=== PATIENT | female | born 1985 | race Caucasian/White ===

== ENCOUNTER 2018-02-19 09:58 | Emergency (ER) | payer MEDICAID, SELFPAY ==
[2018-02-19 09:59] VITALS: BP 130/72; PULSE 73; RESP 15; TEMP 36.7; O2SAT 98; BMI 30.5
--- NOTE | 2018-02-19 10:30 | ED.VISSUMM ---
- ER Visit Summary Date of Service: 02/19/18 Chief Complaint: Abscess, migraine History of Present Illness: The patient is a 32 F who reports a painful lump behind her right ear that she noted last night. She tried to drain it by squeezing it but states this triggered a migraine. She now has a migraine behind her right eye. She took Imitrex last night without improvement. She did take ibuprofen already this morning. Patient states she had a similar abscess to this area that got quite large and required I&D. She denies fever or chills. Physical Examination: Vital signs unremarkable. Head neck examination was a 1/2 cm round abscess just posterior to the right ear. There is mild fluctuance. There is no surrounding cellulitis. There is no meningismus. Heart is regular rate and rhythm. Lung sounds are clear. Abdomen is soft nontender. Neuro exam is normal. Test Results: [] Emergency Department Course and Treatment: Let was applied to the abscess. After 20 minutes 18-gauge needle was used to aspirate. I did get small amount of white pus. Wound was cleansed and dressed. Patient did drive herself here and therefore did not wish for migraine medication at this time, but we will write her for Toradol, Reglan, and Benadryl that she will take after she gets home. At this time there is no sign of cellulitis and antibiotics are not indicated. Patient will use warm compresses to the abscess area to encourage continued drainage. Treatment Plan: [] Disposition: Discharge Impression: 1. Cutaneous abscess status post needle aspiration 2. Migraine This note was generated with [employer] dictation software. It may contain incorrect words, spelling, and punctuation that were not noted in review of the chart prior to signing ED Disposition - Plan for ED Patient: Chief Complaint: Abscess Referrals: Magen Crow MD [NON-STAFF] -
--- NOTE | 2018-02-19 11:12 | ED.DEP ---
ED Disposition - Plan for ED Patient: Disposition: Home or Assisted Living Chief Complaint: Abscess Instructions: ED Headache Migraine, ED Abscess IandD Prescriptions: DiphenhydrAMINE [Benadryl] 50 mg PO Q6H PRN PRN #10 cap PRN Reason: Migraine Symptoms Ketorolac [Toradol] 10 mg PO Q6H PRN #10 tab PRN Reason: Migraine Symptoms Metoclopramide [Reglan] 10 mg PO 4X/DAY PRN #10 tab PRN Reason: Migraine Symptoms Referrals: Yuan Blackburn MD [Primary Care Provider] - 1 Week
[2018-02-19] MEDS: Lidocaine/Epi/Tetracaine 50 ML 1 APPLIC TOPICAL (11:25)
== END 2018-02-19 11:35 | disposition home or self-care (01) ==
PROVIDERS: Emergency Provider Emergency Medicine; Family Provider Family Medicine; PCP Family Medicine
DX: H60.01 Abscess of right external ear (principal); G43.909 Migraine, unspecified, not intractable, without status migrainosus; Z79.899 Other long term (current) drug therapy; Z87.891 Personal history of nicotine dependence
CPT/HCPCS: 69000; 99282

== ENCOUNTER 2018-09-03 15:55 | Emergency (ER) | payer MEDICAID, SELFPAY ==
[2018-09-03 15:55] VITALS: BP 116/75; PULSE 75; RESP 16; TEMP 37.1; O2SAT 96; BMI 29.5
--- NOTE | 2018-09-03 16:38 | ED.DCSUM_ITS ---
- ER Visit Summary Date of Service: 09/03/18 Chief Complaint: Headache History of Present Illness: The patient is a 33 F history of migraine headaches. Takes Imitrex as needed. Says she has been feeling well recently with nasal congestion. Over the last 3 days she has had intermittent frontal and global headache. Gradual in onset. Associated photophobia and sonophobia. Nausea without vomiting. No fever. No purulent nasal discharge. No head trauma. She is on no blood thinners. There is no family history of intracranial bleeds or aneurysms. She had a prior CAT scan in the past which was unremarkable. Physical Examination: Well-appearing female seated in bed darkened room. Vital signs are stable afebrile. No distress. Pupils round reactive light. Extra motions are intact. No nerve palsy. No facial droop. No frontal or maxillary sinus tenderness. Nasal congestion but no purulent discharge. TMs are normal. Posterior pharynx normal. No erythema or exudate. No signs of trauma to her face or scalp. Neck nontender no meningismus. Trachea midline. Able to touch chin to chest. Lungs clear to auscultation bilaterally. Heart regular rate and rhythm no murmur. Abdomen soft nontender. Patient moving all 4 extremities. Neurovascular intact. 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 Dorsi plantar flexion intact. Heel to wall and finger to nose within normal limits. Neurologically she is awake alert with no focal motor or sensory deficits NIH score of 0. Test Results: None Emergency Department Course and Treatment: Patient treated with IV fluids, Toradol, Benadryl and Phenergan. Repeat exam at 1730 patient is doing well. Headache is nearly completely resolved. Her neurologic exam remains normal and she feels comfortable being discharged home. Treatment Plan: Tylenol and Advil as needed for pain. Follow-up with your doctor as needed. Disposition: Discharge Impression: Acute cephalgia History of migraine headaches This note was generated with [employer] dictation software. It may contain incorrect words, spelling, and punctuation that were not noted in review of the chart prior to signing ED Disposition - Plan for ED Patient: Referrals: Yuan Blackburn MD [Primary Care Provider] -
[2018-09-03] MEDS: DiphenhydrAMINE 50 MG/ML Syringe 25 MG IV (16:58)
[2018-09-03] MEDS: 0.9% Normal Saline 1,000 ML 1000 ML IV (16:59)
[2018-09-03] MEDS: Ketorolac 30 MG/ML Syringe IV (16:59)
[2018-09-03] MEDS: proMETHazine 25 MG/ML Syringe 12.5 MG IV (16:59)
--- NOTE | 2018-09-03 17:34 | ED.DEP ---
ED Disposition - Plan for ED Patient: Disposition: Home or Assisted Living Instructions: ED Cephalgia Unspecified Referrals: Yuan Blackburn MD [Primary Care Provider] - 3-5 Days if not improving Additional Instructions: Fluids and rest. Tylenol and Advil for pain. Return if feeling worse or follow-up with your doctor if not improving.
[2018-09-03 17:43] VITALS: RESP 18
== END 2018-09-03 17:45 | disposition home or self-care (01) ==
PROVIDERS: Emergency Provider Emergency Medicine; Family Provider Family Medicine; PCP Family Medicine
DX: R51 Headache (principal); R11.0 Nausea
CPT/HCPCS: 96361; 96374; 96375; 99283; J7030; A4216

== ENCOUNTER 2018-11-21 17:17 | Emergency (ER) | payer MEDICAID, SELFPAY ==
[2018-11-21 17:18] VITALS: BP 134/80; PULSE 86; RESP 16; TEMP 36.1; O2SAT 95; BMI 29.0
[2018-11-21] MEDS: Metoclopramide 10 MG/2 ML Vial IV (17:55)
[2018-11-21] MEDS: Ketorolac 30 MG/ML Syringe IV (17:55)
[2018-11-21] MEDS: DiphenhydrAMINE 50 MG/ML Syringe 25 MG IV (17:55)
[2018-11-21] MEDS: 0.9% Normal Saline 1,000 ML 999 ML IV (17:55)
--- NOTE | 2018-11-21 19:05 | ED.VISSUMM ---
- ER Visit Summary Date of Service: 11/21/18 Chief Complaint: Headache History of Present Illness: The patient is a 33 F who presents with migraine headache. She is a history of migraines. She states this particular headache started last night and has not improved with her home medications. She later admits to me that she is low on her amitriptyline that she normally takes and only took 20 mg last night set of 40. She does have a prescription ready at the pharmacy to picker feeder. Pain was too severe today to go to the pharmacy. She denies any recent head injury. She had some mild sinus congestion. No fever. Physical Examination: Vital signs unremarkable. Patient is lying in a darkened room. She is crying. Head and neck examination was no meningismus. Heart is regular rate and rhythm. Lung sounds are clear. Abdomen is soft nontender. Neuro exam is unremarkable. Test Results: [] Emergency Department Course and Treatment: Patient was treated with Toradol, Reglan, Benadryl, and IV fluids. On repeat evaluation she states her headache is completely resolved. She will picker feeder her amitriptyline at the pharmacy on the way home. Treatment Plan: [] Disposition: Discharge Impression: Migraine, improved This note was generated with [email or web address] dictation software. It may contain incorrect words, spelling, and punctuation that were not noted in review of the chart prior to signing ED Disposition - Plan for ED Patient: Disposition: Home or Assisted Living Instructions: ED Headache Migraine Referrals: Yuan Blackburn MD [Primary Care Provider] - As Needed
[2018-11-21 19:18] VITALS: RESP 18
== END 2018-11-21 19:19 | disposition home or self-care (01) ==
PROVIDERS: Emergency Provider Emergency Medicine; Family Provider Family Medicine; PCP Family Medicine
DX: G43.909 Migraine, unspecified, not intractable, without status migrainosus (principal); R09.81 Nasal congestion; F41.9 Anxiety disorder, unspecified; F32.9 Major depressive disorder, single episode, unspecified; Z79.899 Other long term (current) drug therapy; Z87.891 Personal history of nicotine dependence
CPT/HCPCS: 96361; 96374; 96375; 99283; J7030

== ENCOUNTER 2021-08-16 17:13 | Observation (INO) | payer MEDICAID, SELFPAY ==
[2021-08-16 17:14] VITALS: BP 121/75; PULSE 69; RESP 14; TEMP 36.2; O2SAT 100; BMI 27.8
--- NOTE | 2021-08-16 17:29 | EX.ED.SAOD ---
HPI History of Present Illness Chief Complaint: Substance Abuse Informant: patient Associated Symptoms Associated Symptoms: Positive for vomiting* (With withdrawal) and tremor Narrative Narrative: Patient presenting wanting detox for narcotics. For the last 6 months or so, she has been crushing Percocet tablets and snorting them. She states initially, she only did this because she was dating someone who got her hooked on them. She no longer is dating that person, but now she is unable to stop it because of the withdrawal symptoms. She does not use any other substances except for occasional marijuana. She uses about 4 tablets/day on average. She states they are being advertised to her as Percocet 30s, and she states since they do not make those anymore she suspects they are pressed pills of something else may be fentanyl. She has not had any overdoses or loss of consciousness. [facility] Medical History (Updated 08/16/21 @ 18:47 by Althea Damian) Anxiety Bipolar disorder Migraines Substance abuse Home Medications brexpiprazole [Rexulti] 2 mg PO DAILY 08/16/21 [History Last Taken 08/16/21] lamotrigine 200 mg PO DAILY 08/16/21 [History Last Taken 08/16/21] rizatriptan 10 mg PO PRN PRN 08/16/21 [History Last Taken Unknown] Allergy/AdvReac Type Severity Reaction Status Date / Time amoxicillin [Amoxicillin] Allergy Unknown Verified 08/16/21 17:14 Social History (Updated 08/16/21 @ 17:[address] Jamel Lawton MD) Smoking Status: Current every day smoker tobacco type: e-cigarettes how long ago did patient quit smoking: Patient vapes and occasionally uses marijuana substance use type: opiates ROS ROS ED Constitutional Constitutional ED: Denies chills or fever(s) Eyes Eyes: Denies change in vision or diplopia ENT ENT ED: Denies rhinorrhea or sore throat Cardiovascular Cardiovascular: Denies chest pain or palpitations Respiratory/Chest Respiratory/Chest: Denies cough or dyspnea Gastrointestinal Gastrointestinal: Denies abdominal pain, diarrhea, nausea or vomiting Genitourinary Genitourinary ED: Denies dysuria or hematuria Musculoskeletal Musculoskeletal: Denies back pain or neck pain Integumentary Denies abscess or rash Neurologic Neurologic: Denies headache(s), paresthesias or weakness Psychiatric Psychiatric: Denies anxiety or suicidal thoughts EXAM Physical Exam Const Vital Signs: 08/16/21 17:14 Temperature 97.1 F L Temperature Source Temporal Pulse Rate 69 Respiratory Rate 14 Blood Pressure 121/75 H Blood Pressure Mean 90 Pulse Ox 100 Oxygen Delivery Method Room Air Positive well nourished and well developed General Appearance ED: well developed and NAD HEENT Reports moist mucous membranes normocephalic and atraumatic Eyes PERRL and EOMs intact bilaterally Neck full ROM and supple Resp normal respiratory effort and clear to auscultation bilaterally Cardio regular rate, regular rhythm and no murmurs GI non-tender and non-distended Auscultation: normoactive bowel sounds Palpation: soft Back/Spine no CVA tenderness General Back: other FROM Extremity normal to inspection General Extremety ED: Negative for edema, pulses abnormal or tenderness General Extremity: Negative for edema or pulses abnormal Neuro oriented x3, CN's II-XII intact bilaterally and no sensory deficits noted Sensorium / Orientation: awake and alert Motor Exam: strength 5/5 throughout Skin no rashes or lesions noted and no wounds MDM MDM MDM Narrative Medical decision making narrative: Patient is clinically and hemodynamically stable, not having any acute withdrawal at this time since she used earlier, discussed with hospitalist for admission to detox. Lab Data Attestation: I reviewed the patient's lab results. Labs: Laboratory Results - last 24 hr 08/16/21 08/16/21 08/16/21 18:00 18:05 18:05 WBC 7.6 RBC 4.70 Hgb 14.5 Hct 41.7 MCV 88.7 MCH 30.9 MCHC 34.8 RDW Std Deviation 38.8 RDW Coeff of Leann 12.0 Plt Count 265 MPV 9.6 Immature Gran % (Auto) 0.400 Neut % (Auto) 65.0 Lymph % (Auto) 27.8 [place] % (Auto) 5.9 Eos % (Auto) 0.5 Baso % (Auto) 0.4 Absolute Neuts (auto) 5.0 Absolute Lymphs (auto) 2.12 Nucleated RBC % 0 Sodium Potassium Chloride Carbon Dioxide Anion Gap BUN Creatinine Estim Creat Clear Calc Est GFR (MDRD) Af Amer Est GFR (MDRD) Non-Af BUN/Creatinine Ratio Glucose Calcium Total Bilirubin AST ALT Alkaline Phosphatase Total Protein Albumin Globulin Albumin/Globulin Ratio Serum , Qual NEGATIVE Urine Opiates Screen NEGATIVE Urine Methadone Screen NEGATIVE Ur Barbiturates Screen NEGATIVE Ur Phencyclidine Scrn NEGATIVE Ur Amphetamines Screen NEGATIVE MDMA (Ecstasy) Screen NEGATIVE U Benzodiazepines Scrn NEGATIVE Urine Cocaine Screen NEGATIVE U Cannabinoids Screen POSITIVE H Ur Drug Screen Comment Ethyl Alcohol 08/16/21 08/16/21 18:05 18:05 WBC RBC Hgb Hct MCV MCH MCHC RDW Std Deviation RDW Coeff of Leann Plt Count MPV Immature Gran % (Auto) Neut % (Auto) Lymph % (Auto) [place] % (Auto) Eos % (Auto) Baso % (Auto) Absolute Neuts (auto) Absolute Lymphs (auto) Nucleated RBC % Sodium 136 Potassium 3.4 L Chloride 101 Carbon Dioxide 32.0 Anion Gap 3 L BUN 14 Creatinine 0.64 Estim Creat Clear Calc 114.86 Est GFR (MDRD) Af Amer 136 Est GFR (MDRD) Non-Af 112 BUN/Creatinine Ratio 21.9 H Glucose 79 Calcium 8.8 Total Bilirubin 0.50 AST 11 L ALT 23 Alkaline Phosphatase 44 L Total Protein 7.4 Albumin 4.2 Globulin 3.2 Albumin/Globulin Ratio 1.3 Serum , Qual Urine Opiates Screen Urine Methadone Screen Ur Barbiturates Screen Ur Phencyclidine Scrn Ur Amphetamines Screen MDMA (Ecstasy) Screen U Benzodiazepines Scrn Urine Cocaine Screen U Cannabinoids Screen Ur Drug Screen Comment Ethyl Alcohol < 3.0 Discharge Plan Dx/Rx/DC Orders Clinical Impression: Opioid dependence Disposition Disposition: Acute Care Hospital [facility] Discharge Date/Time: 08/16/21 19:06
--- NOTE | 2021-08-16 18:12 | PCM.HP.STD ---
HPI - General General Date of Admission: 08/16/21 HPI Narrative TISH NORIEGA, is a 36 F with a PMH as outlined who presents via the ED on 08/16/2021 for opiate detox. She says she crushes percocet and snorts them, and has been doing so for at least the past 6 months. She says she only started because she was involved with someone who got her addicted to drugs. She is no longer with that person and so wants to quit. SHe crushes ~ 4 tabs daily and she says she suspects the pills may be something else, eg fentanyl. She admitted to vomiting and tremors, but denied any lightheadedness, dizziness, palpitations, increased sweating or nausea. Review of systems was otherwise negative. Vitals were BP of 121/75, TX of 69, RR of 14 and she was saturating at 100~ on room air. CBC and BMP were pending. Urine tox was also pending. She is being admitted to be managed for acute opiate detox. [facility] Medical History (Updated 08/16/21 @ 18:[address] Swati Rico MD) Anxiety Bipolar disorder Migraines Home Medications brexpiprazole [Rexulti] 2 mg PO DAILY 08/16/21 [History Last Taken Unknown] lamotrigine 200 mg PO DAILY 08/16/21 [History Last Taken Unknown] rizatriptan 10 mg PO PRN PRN 08/16/21 [History Last Taken Unknown] Allergy/AdvReac Type Severity Reaction Status Date / Time amoxicillin [Amoxicillin] Allergy Unknown Verified 08/16/21 17:14 Social History (Updated 08/16/21 @ 17:[address] Jamel Lawton MD) Smoking Status: Current every day smoker tobacco type: e-cigarettes how long ago did patient quit smoking: Patient vapes and occasionally uses marijuana substance use type: opiates ROS Constitutional Constitutional: Denies chills, fatigue, fever(s), malaise or weakness Eyes Eyes: Denies change in vision ENT HEENT: Denies dysphagia, headache(s), nasal discharge or sore throat Cardiovascular Cardiovascular: Denies chest pain, dyspnea on exertion, edema, lightheadedness, orthopnea, palpitations, paroxysmal nocturnal dyspnea, rapid heart rate or syncope Respiratory/Chest Respiratory/Chest: Denies cough, dyspnea, productive cough, shortness of breath at rest or shortness of breath with exertion Gastrointestinal Gastrointestinal: Reports vomiting; Denies abdominal pain, constipation, diarrhea or nausea Genitourinary Genitourinary: Denies burning urination or dysuria Musculoskeletal Musculoskeletal: Denies arthralgias, back pain or joint swelling Neurologic Neurologic: Denies confusion, dizziness, focal weakness, headache(s), numbness, seizure-like activity, seizures, syncope or tingling Psychiatric Psychiatric: Denies anxiety or depression Endocrine Endocrinology: Denies change in body appearance Hematologic/Lymphatic Hematologic/Lymphatic: Denies anemia Vital Signs Vital Signs Vital Signs: 08/16/21 17:14 Temperature 97.1 F L Temperature Source Temporal Pulse Rate 69 Respiratory Rate 14 Blood Pressure 121/75 H Blood Pressure Mean 90 Pulse Ox 100 Oxygen Delivery Method Room Air Weight Weight: 172 lb 6.424 oz Body Mass Index (BMI) 27.8 Physical Exam Const alert, oriented x3 and no apparent distress General Appearance: cooperative HEENT normocephalic, head/scalp atraumatic, hearing grossly normal bilaterally and moist oral mucous membranes Eyes PERRL Neck no lymphadenopathy and supple Resp normal respiratory effort, no retractions, no use of accessory muscles and clear to auscultation bilaterally Cardio regular rate, regular rhythm, S1 normal heart sound, S2 normal heart sound and no murmurs GI normal to inspection, nondistended, normoactive bowel sounds, soft to palpation, non-tender and non-distended Extremity normal to inspection, full ROM and no clubbing, cyanosis or edema Peripheral Pulses: Yes pulses 2+ throughout Skin no rashes or lesions noted Neuro oriented x3, CN's II-XII intact bilaterally and moves all extremities Sensorium / Orientation: awake and alert Psych affect normal Results Lab / Micro Data Result Diagrams: 08/16/21 18:05 08/16/21 18:05 Assessment & Plan Assessment/Plan (1) Opioid withdrawal: PLAN: #Acute opioid withdrawal admit to med surg urine tox pending start on opioid withdrawal protocol with buprenorphine adjunctive meds as per protocol for symptomatic relief #History of migraines: on lamictal and rizatriptan #Bipolar disorder: not on any meds now. To follow up with PCP on outpatient basis DVT prophylaxis;low dose, encouraged to ambulation. Charges/Coding Visit Charges Inpatient E&M: 95126 Init Hosp L3
--- NOTE | 2021-08-16 18:13 | NURSING ---
HOSPITALIST FOR DR HOFFMAN
[2021-08-16 18:15] LABS: Absolute Lymphocyte Count 2.12 X10^3/uL (0.83-4.51); Basophil# 0.03 X10^3/uL; Basophil% 0.4 % (0-1); Eosinophil# 0.04 X10^3/uL; Eosinophils% 0.5 % (0-5); Hematocrit 41.7 % (37-47); Hemoglobin 14.5 g/dL (12.0-15.0); Lymphocyte # 2.12 X10^3/ul (0.83-4.51); Lymphocyte % 27.8 % (19-41); Mean Corp Hgb Conc 34.8 g/dL (32-36); Mean Corpuscular Hgb 30.9 pg (27.0-32.0); Mean Corpuscular Volume 88.7 fL (81-99); Mean Platelet Vol. 9.6 fl (6.2-12.0); Monocyte# 0.45 X10^3/uL; Monocyte% 5.9 % (0-10); NRBC Flagged by Analyzer 0 % (0-5); Neutrophil # 4.96 X10^3/uL (2.7-7.7); Platelet Count 265 K/mm3 (150-450); RBC Distribution Width SD 38.8 fl (35.1-43.9); White Blood Count 7.6 K/mm3 (4.4-11.0)
--- NOTE | 2021-08-16 18:22 | NURSING ---
MED SURG [facility] OPIOD DEPENDENCE
--- NOTE | 2021-08-16 18:24 | CM.ED ---
SONYA Note Referral Source: Case Find Referral Reason: Detox SW met with patient. She reports she is at the hospital for detox. She reports taking 4 percocet 30's a day but they aren't real percocet they are a pressed pill. Patient reports using the pills for 6 months. Last time she took pills was this morning. Patient reports no detox or residental treatment in the past. SW called Zain, Addiction Therapist and updated her regarding patient's presentation in the ED. Plan: RAMP admission Kathryn HAN
[2021-08-16 18:28] LABS: Internal QC Validated? YES +Cl - CLEAR BKGD; Pregnancy, Serum, hCG Quali. NEGATIVE Negative
[2021-08-16 18:31] VITALS: BP 120/72; PULSE 70; RESP 16; TEMP 36.6; O2SAT 100
[2021-08-16 18:32] LABS: Amphetamine Urine VISTA NEGATIVE (<1000 ng/mL); Barbiturate Urine VISTA NEGATIVE (< 200 ng/mL); Benzodiazepine Urine VISTA NEGATIVE (< 200 ng/mL); Cocaine Urine VISTA NEGATIVE (< 300 ng/mL); Ecstacy Urine VISTA NEGATIVE (< 500 ng/mL); Methadone Urine VISTA NEGATIVE (< 300 ng/mL); PCP Urine VISTA NEGATIVE (< 25 ng/mL); THC Urine VISTA POSITIVE (< 50 ng/mL); Vista UDS pH Range 6
[2021-08-16 18:38] LABS: Alcohol, Blood (Medical)-Serum < 3.0 mg/dL
[2021-08-16 18:47] LABS: ALB/GLOB Ratio 1.3 RATIO (0.9-2.4); AST(SGOT) 11 U/L (15-37); Alanine Aminotransfer ALT/SGPT 23 U/L (13-56); Albumin, Serum 4.2 g/dL (3.2-5.0); Alkaline Phosphatase 44 U/L (45-117); Anion Gap 3 (5-15); BUN 14 mg/dL (7-18); BUN/Creat Ratio 21.9 RATIO (10-20); Calcium,Total 8.8 mg/dL (8.5-10.1); Chloride 101 mmol/L (98-107); Creatinine, Serum 0.64 mg/dL (0.55-1.02); EST Glomerular Filtration Rate 112 mL/min (>60); Est Glom Filt Rate - Afr Amer 136 mL/min (>60); Estimated Creatinine Clearance 114.86 ml/min; Globulin 3.2 g/dL (2.2-4.2); Glucose 79 mg/dL (74-106); Potassium 3.4 mmol/L (3.5-5.1); Protein, Total 7.4 g/dL (6.4-8.2); Sodium Level 136 mmol/L (136-145)
[2021-08-16 19:22] VITALS: BMI 26.9
[2021-08-16 19:26] VITALS: BP 113/74; PULSE 83; RESP 16; TEMP 37.1; O2SAT 100
[2021-08-17 04:35] VITALS: BP 97/67; PULSE 73; RESP 16; TEMP 36.7; O2SAT 97
[2021-08-17] MEDS: Buprenorphine HCl 2 MG TAB.SUBL SL ×3 (04:56→20:20)
[2021-08-17] MEDS: Methocarbamol 750 MG Tablet 1500 MG PO ×3 (04:56→20:20)
--- NOTE | 2021-08-17 07:18 | PN.HOSP_ITS ---
Subjective Subjective Patient admitted with acute opioid withdrawal. She denies IVUs. She snorts opioids, cocktail, mainly fentanyl, exact content/ingredients unknown. Objective Data Objective Data Vital Signs: Vital Signs Temp Pulse Resp BP Pulse Ox 98.0 F 73 16 97/67 97 08/17/21 04:35 08/17/21 04:35 08/17/21 04:35 08/17/21 04:35 08/17/21 04:35 Oxygen Delivery Method Room Air Weight: 166 lb 13.416 oz Body Mass Index (BMI) 26.9 Lab / Micro Data Result Diagrams: 08/16/21 18:05 08/16/21 18:05 Labs: Laboratory Results - last 24 hr 08/16/21 18:00: Urine Opiates Screen NEGATIVE, Urine Methadone Screen NEGATIVE, Ur Barbiturates Screen NEGATIVE, Ur Phencyclidine Scrn NEGATIVE, Ur Amphetamines Screen NEGATIVE, MDMA (Ecstasy) Screen NEGATIVE, U Benzodiazepines Scrn NEGATIVE, Urine Cocaine Screen NEGATIVE, U Cannabinoids Screen POSITIVE H, Ur Drug Screen Comment 08/16/21 18:05: WBC 7.6, RBC 4.70, Hgb 14.5, Hct 41.7, MCV 88.7, MCH 30.9, MCHC 34.8, RDW Std Deviation 38.8, RDW Coeff of Leann 12.0, Plt Count 265, MPV 9.6, Immature Gran % (Auto) 0.400, Neut % (Auto) 65.0, Lymph % (Auto) 27.8, [place] % (Auto) 5.9, Eos % (Auto) 0.5, Baso % (Auto) 0.4, Absolute Neuts (auto) 5.0, Abso lute Lymphs (auto) 2.12, Nucleated RBC % 0 08/16/21 18:05: Serum , Qual NEGATIVE 08/16/21 18:05: Sodium 136, Potassium 3.4 L, Chloride 101, Carbon Dioxide 32.0, Anion Gap 3 L, BUN 14, Creatinine 0.64, Estim Creat Clear Calc 114.86, Est GFR (MDRD) Af Amer 136, Est GFR (MDRD) Non-Af 112, BUN/Creatinine Ratio 21.9 H, Glucose 79, Calcium 8.8, Total Bilirubin 0.50, AST 11 L, ALT 23, Alkaline Phosphatase 44 L, Total Protein 7.4, Albumin 4.2, Globulin 3.2, Albumin/Globulin Ratio 1.3 08/16/21 18:05: Ethyl Alcohol < 3.0 Physical Exam Narrative General: Alert, Oriented x3, Cooperative HEENT: Atraumatic, PERRLA, EOMI, Normocephalic Oral: No Gingival or Mucosal Lesions/ Ulcerations Neck: Supple, No JVD, Negative Carotid Bruits Lungs: Air entry equal in bilateral lung bases. No crepitation/rhonchi Cardiovascular: Regular rate, Regular Rhythm, Normal S1, Normal S2, No murmurs Abdomen: Bowel Sounds Present, Soft, Non Tender, Non-Distended : No renal angle tenderness. No suprapubic tenderness. Extremities: No edema, Capillary Refill Less than 3 Seconds Skin: No rashes, No breakdown Musculoskeletal: No Tenderness to Palpation of Joints or Extremities Neurological: Cranial nerves II-XII grossly intact, DTR 2+/4 and Symmetrical, Neuro grossly intact Psych/Mental Status: Flat affect. Denies hallucinations or delusions. Assessment & Plan Assessment/Plan (1) Opioid withdrawal: PLAN: 1. Acute opioid withdrawal syndrome with chronic opioid use, dependence and tolerance: Patient is admitted to MedSurg floor. U tox positive of cannabinoids. Opioids negative. Patient on buprenorphine based other adjunctive medications to control withdrawal symptoms. No seizure. 2. History of migraines: on lamictal and rizatriptan. Patient not having any headache 3. Bipolar disorder: not on any meds now. To follow up with PCP/psychiatrist on outpatient basis 4. Chronic nicotine use: Patient uses vaping. She also uses marijuana. DVT prophylaxis; low risk. Early ambulation encouraged. Charges/Coding Visit Charges Inpatient E&M: 51208 Subs Hosp L2
[2021-08-17 07:52] VITALS: BP 107/61; PULSE 77; RESP 16; TEMP 36.9; O2SAT 99
[2021-08-17] MEDS: Potassium Chloride Oral Tablet 20 MEQ 40 MEQ PO (08:09)
[2021-08-17] MEDS: lamoTRIgine 100 MG Tablet 200 MG PO (08:09)
[2021-08-17] MEDS: Senna/Docusate Sodium 1 Tablet 2 TABLET PO ×2 (09:42→20:21)
--- NOTE | 2021-08-17 10:26 | ADDICTION ---
This gag writer met with PT to conduct ASAM, MSE, AUDIT, DUDIT assessments and to plan for d/c. PT A+Ox4 and participated actively. All assessments completed, and placed in PT's chart. PT plans to f/u with individual counselor at [facility] for follow-up counseling services. PT did not indicate a need for transportation post d/c from [facility].
--- NOTE | 2021-08-17 11:01 | ADDICTION ---
Pt informed this worker that she is interested in Vivitrol. She has an appointment @ 10am with Yanni for a consult and group appt with Dr. Padgett.
[2021-08-17 12:36] VITALS: BP 94/60; PULSE 69; RESP 16; TEMP 37.1; O2SAT 99
[2021-08-17 15:01] VITALS: BP 96/69; PULSE 68; RESP 16; TEMP 37.1; O2SAT 98
[2021-08-17 20:45] VITALS: BP 98/53; PULSE 60; RESP 16; TEMP 36.6; O2SAT 100
[2021-08-18 03:00] VITALS: BP 98/62; PULSE 68; RESP 15; TEMP 37.2; O2SAT 100
[2021-08-18] MEDS: Buprenorphine HCl 2 MG TAB.SUBL SL ×3 (05:09→20:03)
[2021-08-18] MEDS: Senna/Docusate Sodium 1 Tablet 2 TABLET PO ×2 (07:59→20:03)
[2021-08-18] MEDS: lamoTRIgine 100 MG Tablet 200 MG PO (07:59)
[2021-08-18 08:11] VITALS: BP 93/56; PULSE 75; RESP 16; TEMP 36.6; O2SAT 97
[2021-08-18] MEDS: Methocarbamol 750 MG Tablet 1500 MG PO (11:21)
[2021-08-18 11:34] VITALS: BP 93/66; PULSE 67; RESP 16; TEMP 36.8; O2SAT 100
--- NOTE | 2021-08-18 12:35 | PCM.PN.HOSP ---
Subjective Subjective She denies seizure or hallucination. She is feeling better. Objective Data Objective Data Vital Signs: Vital Signs Temp Pulse Resp BP Pulse Ox 98.3 F 67 16 93/66 100 08/18/21 11:34 08/18/21 11:34 08/18/21 11:34 08/18/21 11:34 08/18/21 11:34 Oxygen Delivery Method Room Air Weight: 166 lb 13.416 oz Body Mass Index (BMI) 26.9 Intake & Output: Intake and Output for Last 24 Hours 08/16/21 08/17/21 08/18/21 23:59 23:59 23:59 Intake Total 1600 / 1600 1530 / 1530 Balance 1600 / 1600 1530 / 1530 Medical Nutrition Assessment Dietitian: Malnutrition Criteria Met Start: 08/17/21 11:12 Freq: Status: Active Protocol: Document 08/17/21 11:12 [facility] (Rec: 08/17/21 11:12 [facility] [id number]) Nutrition Malnutrition Evidence of Malnutrition Exists Yes Malnutrition (severe): Social/Behavioral/ Environmental Evidenced By Suboptimal Energy Intake ( Severe),Weight Loss (Severe) Clinical Problem Chronic Disease or Condition Related Malnutrition Etiology related to substance/opiod abuse making it difficult to consume adequate food/fluid to meet est nutrition needs Signs/Symptoms as evidenced by 16.6% wt loss and <50% po intake (pt eating only 1 meal/day) 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 No crepitation/rhonchi Cardiovascular: Regular rate, Regular Rhythm, Normal S1, Normal S2, No murmurs Abdomen: Bowel Sounds Present, Soft, Non Tender, Non-Distended : No renal angle tenderness. No suprapubic tenderness. Extremities: No edema, Capillary Refill Less than 3 Seconds Skin: No rashes, No breakdown Musculoskeletal: No Tenderness to Palpation of Joints or Extremities Neurological: Cranial nerves II-XII grossly intact, DTR 2+/4 and Symmetrical, Neuro grossly intact Psych/Mental Status: Flat affect. Denies hallucinations or delusions. Assessment & Plan Assessment/Plan (1) Opioid withdrawal: PLAN: 1. Acute opioid withdrawal syndrome with chronic opioid use, dependence and tolerance: Patient is admitted to [facility] floor. U tox positive of cannabinoids. Opioids negative. Patient on buprenorphine based other adjunctive medications to control withdrawal symptoms. No seizure. 3: No hallucination or seizure. Overall patient is feeling better. No tachycardia. BP 93/66. CINA score 3. Continue treatment. 2. History of migraines: on lamictal and rizatriptan. Patient not having any headache 08/18: No acute change. Continue same medications 3. Bipolar disorder: not on any meds now. To follow up with PCP/psychiatrist on outpatient basis 4. Chronic nicotine use: Patient uses vaping. She also uses marijuana. DVT prophylaxis; low risk. Early ambulation encouraged. Charges/Coding Visit Charges Inpatient E&M: 24981 Subs Hosp L2
[2021-08-18 16:26] VITALS: BP 97/66; PULSE 58; RESP 16; TEMP 37.1; O2SAT 98
[2021-08-18] MEDS: Rizatriptan Benzoate 10 MG Tablet PO (20:03)
[2021-08-18] MEDS: traZODone 100 MG Tablet PO (20:05)
[2021-08-18] MEDS: Ondansetron 8 MG Tablet PO (20:26)
[2021-08-18 20:31] VITALS: BP 101/71; PULSE 74; RESP 16; TEMP 36.6; O2SAT 100
[2021-08-19 03:31] VITALS: BP 104/62; PULSE 63; RESP 16; TEMP 37; O2SAT 98
[2021-08-19] MEDS: Rizatriptan Benzoate 10 MG Tablet PO (03:36)
[2021-08-19] MEDS: Buprenorphine HCl 2 MG TAB.SUBL SL (04:51)
--- NOTE | 2021-08-19 08:59 | PCM.DC ---
Discharge Instructions Diet Discharge Diet: No restrictions Activity Discharge Activity: Return to Normal Activity and May Not Drive Dressing / Incision Call your doctor if you observe: Fever of 101 or Higher, Coldness, Increased Pain, Numbness or Tingling, Change in Color, Inability to urinate, Inability to have a bowel movement, Using more than 1 pad per hour, Shortness of breath, Dizziness, Fainting spells, Swelling in the ankles, Chest pain, Prolonged hiccupping, Increased palpitations (irregular heartbeat), Calf discomfort and Uncontrolled pain Follow Up Care Test Results: Test results from this visit will be discussed in further detail at your follow-up appointment, if applicable. Discharge Plan Admission Admit Date/Time: 08/16/21 18:18 Primary Reason for Your Visit: Acute opioid withdrawal syndrome Attending Provider: Lalit Ward Primary Care Provider: Yuan Blackburn Instructions Additional Instructions / Restrictions: Outpatient 180 follow-up on 08/20/2021 for Vivitrol injection Discharge Orders/Prescriptions Prescriptions: Continued lamotrigine 200 mg tablet 200 mg PO DAILY RF: 0 rizatriptan 10 mg tablet,disintegrating 10 mg PO PRN PRN (Reason: Headache) RF: 0 Rexulti 2 mg tablet 2 mg PO DAILY RF: 0 Referrals / Follow Up: Yuan Blackburn MD [Primary Care Provider] - Within 1 Week Disposition Disposition (needs filled in before D/C Order can be placed): Home, Self Care
--- NOTE | 2021-08-19 09:02 | DS.PCM_ITS ---
Providers Date of Admission: 08/16/21 Date of Discharge: 08/19/21 Primary Care Physician: Dr. Yuan Blackburn MD Reason For Visit: ACUTE OPIOID WITHDRAWAL Diagnosis Discharge Diagnosis (1) Opioid withdrawal: Status: Acute Code(s): F11.23 - Opioid dependence with withdrawal Medications at Discharge Home Medications Rexulti 2 mg PO DAILY 08/16/21 lamotrigine 200 mg PO DAILY 08/16/21 rizatriptan 10 mg PO PRN PRN 08/16/21 Hospital Course Summary of Care Provided Hospital Course: This 36-year-old female with history of chronic opioid use and dependence came to ED for acute opioid withdrawal symptoms. She wanted medical stabilization and want to stay sober. 1. Acute opioid withdrawal syndrome with chronic opioid use, dependence and tolerance: Patient is admitted to [facility] floor. U tox positive of cannabinoids. Opioids negative. Patient on buprenorphine based other adjunctive medications to control withdrawal symptoms. No seizure. No hallucination or seizure. Overall patient is feeling better. No tachycardia. BP 93/66. CINA score 3. Continue treatment. 2. History of migraines: on lamictal and rizatriptan. Patient not having any headache No acute change. Continue same medications 3. Bipolar disorder: not on any meds now. To follow up with PCP/psychiatrist on outpatient basis 4. Chronic nicotine use: Patient uses vaping. She also uses marijuana. During hospital course she was given nicotine patch but she had migraine headache after nicotine patch. In the morning migraine headache has improved and resolved. Wants to go home. DVT prophylaxis; low risk. Early ambulation encouraged. Discharge medication reconciliation done. Discharge follow-up instructions completed. Discharge process discussed with the patient and all questions were answered to patient's satisfaction. Total time spent, exact 35 minutes on discharge meds reconciliation, examination , coordination of care with nurses and ancillary staff, review of imaging and blood test and discussion with the patient on follow-up instructions. Physical Exam Narrative Yesterday evening/night she had migraine quality headache after nicotine patch. Got better with the pain medication. General: Alert, Oriented x3, Cooperative HEENT: Atraumatic, PERRLA, EOMI, Normocephalic Oral: No Gingival or Mucosal Lesions/ Ulcerations Neck: Supple, No JVD, Negative Carotid Bruits Lungs: Air entry equal in bilateral lung bases. No crepitation/rhonchi Cardiovascular: Regular rate, Regular Rhythm, Normal S1, Normal S2, No murmurs Abdomen: Bowel Sounds Present, Soft, Non Tender, Non-Distended : No renal angle tenderness. No suprapubic tenderness. Extremities: No edema, Capillary Refill Less than 3 Seconds Skin: No rashes, No breakdown Musculoskeletal: No Tenderness to Palpation of Joints or Extremities Neurological: Cranial nerves II-XII grossly intact, DTR 2+/4 and Symmetrical, Neuro grossly intact Psych/Mental Status: Cheerful. Normal affect Medical Records Data Medical Nutrition Assessment Dietitian: Malnutrition Criteria Met Start: 08/17/21 11:12 Freq: Status: Active Protocol: Document 08/17/21 11:12 [facility] (Rec: 08/17/21 11:12 [facility] [id number]) Nutrition Malnutrition Evidence of Malnutrition Exists Yes Malnutrition (severe): Social/Behavioral/ Environmental Evidenced By Suboptimal Energy Intake ( Severe),Weight Loss (Severe) Clinical Problem Chronic Disease or Condition Related Malnutrition Etiology related to substance/opiod abuse making it difficult to consume adequate food/fluid to meet est nutrition needs Signs/Symptoms as evidenced by 16.6% wt loss and <50% po intake (pt eating only 1 meal/day) 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 Recommendation Dietitian Recommendations/Changes Will change to regular diet w/ 3 snacks prn Will change ensure enlive 4x/ day w/ medpass to 4 oz CIB w/ meals per pt preference Weight / BMI Weight Weight: 166 lb 13.416 oz Body Mass Index (BMI) 26.9 ABG / Lab / Microbiology Data Result Diagrams: 08/16/21 18:05 08/16/21 18:05 D/C Instructions Discharge Diet: No restrictions Call your doctor if you observe: Fever of 101 or Higher, Coldness, Increased Pain, Numbness or Tingling, Change in Color, Inability to urinate, Inability to have a bowel movement, Using more than 1 pad per hour, Shortness of breath, Dizziness, Fainting spells, Swelling in the ankles, Chest pain, Prolonged hiccupping, Increased palpitations (irregular heartbeat), Calf discomfort and Uncontrolled pain Meaningful Use Info Meaningful Use Diagnoses (Choose all that apply): None applicable Discharge Plan Admission Admit Date/Time: 08/16/21 18:18 Primary Reason for Your Visit: Acute opioid withdrawal syndrome Attending Provider: Lalit Ward Primary Care Provider: Yuan Blackburn Instructions Additional Instructions / Restrictions: Outpatient 180 follow-up on 08/20/2021 for Vivitrol injection Discharge Orders/Prescriptions Prescriptions: Continued lamotrigine 200 mg tablet 200 mg PO DAILY RF: 0 rizatriptan 10 mg tablet,disintegrating 10 mg PO PRN PRN (Reason: Headache) RF: 0 Rexulti 2 mg tablet 2 mg PO DAILY RF: 0 Referrals / Follow Up: Yuan Blackburn MD [Primary Care Provider] - Within 1 Week Disposition Disposition (needs filled in before D/C Order can be placed): Home, Self Care Charges/Coding Visit Charges Inpatient E&M: 58722 Disch Hosp
[2021-08-19 09:31] VITALS: BP 94/73; PULSE 70; RESP 16; TEMP 36.6; O2SAT 98
[2021-08-19] MEDS: lamoTRIgine 100 MG Tablet 200 MG PO (10:38)
[2021-08-19 10:48] VITALS: BP 94/73; PULSE 70; RESP 16; TEMP 36.6; O2SAT 98
== END 2021-08-19 10:59 | disposition home or self-care (01) ==
LOC: ED 17:35 → MS3 08-17 07:12
PROVIDERS: Admitting Provider Student in an Organized Health Care Education/Training Program; Emergency Provider Emergency Medicine; PCP Family Medicine; Visit Provider Internal Medicine
DX: F11.23 Opioid dependence with withdrawal (principal); F31.9 Bipolar disorder, unspecified; F12.90 Cannabis use, unspecified, uncomplicated; F17.290 Nicotine dependence, other tobacco product, uncomplicated; G43.909 Migraine, unspecified, not intractable, without status migrainosus; Z79.899 Other long term (current) drug therapy; F41.9 Anxiety disorder, unspecified
CPT/HCPCS: G0378 ×2; 80053; 80307; 82077; 84703; 85025; 97802; 99218; 99283; H0012

== ENCOUNTER 2022-03-03 15:36 | Emergency (ER) | payer MEDICAID, SELFPAY ==
[2022-03-03 15:37] VITALS: BP 116/73; PULSE 107; RESP 16; TEMP 37.8; O2SAT 98; BMI 25.3
[2022-03-03 15:44] VITALS: BP 115/76; PULSE 102; RESP 19; TEMP 38.3; O2SAT 98
--- NOTE | 2022-03-03 15:51 | ED.VIS.FEGU ---
HPI HPI - Female History of Present Illness Chief Complaint: Complaint Informant: patient Pain Pain: Negative for Pelvic Pain Associated Symptoms Associated Symptoms: Positive for Dysuria and Frequency Control: - (Belkis) Narrative Narrative: 36-year-old female history of depression, anxiety and bipolar disorder. No significant surgeries. Prior history of drug abuse on Suboxone. States for the last 3 to 4 days starting on Friday she has had dysuria. Strong odor to her urine. And just that she feels poorly. Today she developed a fever 101. Has had nausea and vomiting. No diarrhea. States she is currently on and is not . Prior similar symptoms: No Recent Illness/Hospitalization: No PFSH PFSH Medical History Anxiety Bipolar disorder Migraines Opioid dependence Substance abuse Home Medications brexpiprazole 2 mg tablet (Rexulti) 2 mg PO DAILY mood 08/16/21 [History Last Taken 08/16/21] lamotrigine 200 mg tablet 200 mg PO DAILY bipolar 08/16/21 [History Last Taken 08/16/21] rizatriptan 10 mg disintegrating tablet 10 mg PO PRN PRN Headache 08/16/21 [History Last Taken Unknown] buprenorphine 8 mg-naloxone 2 mg sublingual tablet 1 tab sublingual DAILY 03/03/22 [History Last Taken Unknown] cephalexin 500 mg capsule 500 mg PO Q6 #30 caps 03/03/22 [Rx Last Taken Unknown] cephalexin 500 mg capsule 500 mg PO Q6 #30 caps 03/03/22 [Rx Last Taken Unknown] ondansetron 4 mg disintegrating tablet 4 mg PO Q4H PRN nausea and vomiting #7 tabs 03/03/22 [Rx Last Taken Unknown] ondansetron 4 mg disintegrating tablet 4 mg PO Q8H 48 hours #6 tabs 03/03/22 [Rx Last Taken Unknown] Allergy/AdvReac Type Severity Reaction Status Date / Time amoxicillin [Amoxicillin] Allergy Unknown Verified 03/03/22 15:37 Social History Smoking Status: Current every day smoker tobacco type: e-cigarettes how long ago did patient quit smoking: Patient vapes and occasionally uses marijuana substance use type: opiates ROS ROS ED ROS Narrative Nausea and vomiting. Dysuria. Fever. Review of Systems ROS Unobtainable: Denies due to encephalopathy Constitutional Constitutional ED: Reports chills and fever(s) Eyes Eyes: Denies blurry vision ENT ENT ED: Denies ear pain or rhinorrhea Cardiovascular Cardiovascular: Denies chest pain Respiratory/Chest Respiratory/Chest: Denies cough or dyspnea Gastrointestinal Gastrointestinal: Reports nausea and vomiting; Denies abdominal pain or diarrhea Genitourinary Genitourinary ED: Reports dysuria Musculoskeletal Musculoskeletal: Denies arthralgias or myalgias Integumentary Denies abscess Neurologic Neurologic: Denies headache(s) Psychiatric Psychiatric: Denies anxiety Endocrine Endocrinology: Denies heat intolerance Hematologic/Lymphatic Hematologic/Lymphatic: Denies easy bleeding Allergic/Immunologic Allergic/Immunologic ED: Denies mouth swelling EXAM Physical Exam Narrative Exam Narrative: 36-year-old female vital signs are stable she does have a fever of 101. Does not look septic or toxic. No distress. H EENT exam unremarkable. Neck nontender. Lungs are clear equal symmetrical. Heart regular rhythm rate about 105 no murmur. Abdomen soft nondistended normal bowel sounds no peritoneal signs. Right upper and right lower quadrants are unremarkable. Back nontender. No CVA tenderness. Moving all 4 extremities. Nontender no edema. No rashes. Neurologically awake and alert. No focal motor deficits. Const Vital Signs: 03/03/22 15:37 03/03/22 15:44 03/03/22 15:44 Temperature 100.0 F H 101.0 F H 101.0 F H Temperature Source Temporal Oral Oral Pulse Rate 107 H 102 H 102 H Respiratory Rate 16 19 H 19 H Blood Pressure 116/73 115/76 115/76 Blood Pressure Mean 87 89 89 Pulse Ox 98 98 98 Oxygen Delivery Method Room Air Room Air Room Air Positive well nourished and well developed; Negative for obese, cachectic, contractures or unkempt General Appearance ED: well developed and NAD; Negative for unkempt, cachectic, contractures, odor of alcohol detected or pallor Nutritional Appearance: Negative for cachectic or obese HEENT Reports moist mucous membranes Negative for trauma or tenderness Eyes PERRL and EOMs intact bilaterally General Eye ED: Negative for pale conjunctiva or scleral icterus Neck no lymphadenopathy, supple and no JVD General: Negative for other Thyroid: Negative for tender Lymph Lymphatic: Negative for other Chest Wall inspection of chest normal and palpation of chest normal Chest: Negative for other Resp normal respiratory effort and clear to auscultation bilaterally Effort and Inspection: Negative for pain with movement Auscultation: Negative for rales, rhonchi or wheezes Cardio S1 normal heart sound, no murmurs and no JVD; Negative for regular rate Rate: tachycardic; Negative for bradycardia GI normal to inspection, nondistended, normoactive bowel sounds, soft to palpation, non-tender, non-distended and no masses Auscultation: normoactive bowel sounds Palpation: Negative for tender, guarding, rigid or hepatomegaly Back/Spine no CVA tenderness General Back: Negative for CVA tenderness Cervical Spine: Negative for cervical spine tenderness Thoracic Spine / Upper Back: Negative for thoracic spinal tenderness Lumbar Spine / Lower Back: Negative for lumbar spinal tenderness Sacrum: Negative for other Extremity normal to inspection and full ROM General Extremety ED: Negative for edema General Extremity: Negative for edema Neuro oriented x3, CN's II-XII intact bilaterally and no sensory deficits noted Sensorium / Orientation: alert, oriented to person, oriented to place and oriented to time; Negative for confused, lethargic or stuporous Motor Exam: strength 5/5 throughout Psych mental status grossly normal Appearance: Negative for unkempt Attitude: No agitated Speech: No other Mood & Affect: Negative for depressed or anxious Skin no rashes or lesions noted and no wounds General Skin Exam: Negative for jaundice or pallor Rashes: No rashes noted Trauma: Negative for other MDM MDM MDM Narrative Medical decision making narrative: 36-year-old with dysuria and fevers suspect urinary tract infection. Urinalysis being obtained. She will be treated with p.o. Zofran and Tylenol. Repeat exam patient doing well at 4:43 p.m. Patient be discharged home. Dose of Keflex here prior to discharge. Keflex 4 times a day for a week. Urine culture sent. Follow-up as needed. Lab Data Attestation: I reviewed the patient's lab results. Lab results narrative: Urine shows positive nitrates, ketones, 25-50 red cells, greater than 100 white cells and 4+ bacteria. It is contaminated with 10-25 epithelial cells however she has symptoms and will be treated as UTI. Urine culture be sent. Labs: Laboratory Results - last 24 hr 03/03/22 16:15 Urine Color Yellow Urine Clarity Cloudy Urine pH 6.0 Ur Specific [place] 1.020 Urine Protein 100 H Urine Glucose (UA) Normal Urine Ketones 150 A* Urine Occult Blood 150 H Urine Nitrite Positive H Urine Bilirubin 3 H Urine Urobilinogen 4 H Ur Leukocyte Esterase 500 H Urine RBC 25-50 SEEN Urine WBC >100 SEEN Ur Squamous Epith Cells 10-25 SEEN Urine Bacteria 4+ Urine Mucus 0 SEEN Discharge Plan Triage Chief Complaint: Complaint ED Provider: Manohar Dempsey Dx/Rx/DC Orders Clinical Impression: Urinary tract infection, Fever, History of bipolar disorder Instructions: UTIs Women Prescriptions: New cephalexin 500 mg capsule 500 mg PO Q6 Qty: 30 0RF ondansetron 4 mg tablet,disintegrating 4 mg PO Q4H PRN (Reason: nausea and vomiting) Qty: 7 0RF cephalexin 500 mg capsule 500 mg PO Q6 Qty: 30 0RF ondansetron 4 mg tablet,disintegrating 4 mg PO Q8H 2 Days Qty: 6 0RF No Action lamotrigine 200 mg tablet 200 mg PO DAILY rizatriptan 10 mg tablet,disintegrating 10 mg PO PRN PRN (Reason: Headache) Label Comments: DISSOLVE 1 TABLET IN MOUTH NEEDED MAY REPEAT IN 2 HOURS IF NEEDED. MAX OF 30MG/24 HOURS Rexulti 2 mg tablet 2 mg PO DAILY buprenorphine-naloxone 8-2 mg tablet, sublingual 1 tab SUBLINGUAL DAILY Label Comments: Take 16 mg under tongue once a day as directed Stand Alone Forms: ED Work / School Excuse Primary Care Provider: Yuan Blackburn Referrals: Yuan Blackburn MD [Primary Care Provider] - Activity Restrictions/Additional Instructions: You have a urinary tract infection. Be treated with antibiotic Keflex. 1 pill 4 times a day till gone. Zofran only as needed for nausea. You can swallow it if you choose nausea to swat you can let it dissolve under your tongue Motrin and Tylenol for pain and fevers. Follow-up with your doctor if not improving. We did send a urine culture. Return if worse. Off work today, Friday and Friday.. Disposition Disposition: Home, Self Care
[2022-03-03] MEDS: Ondansetron ODT 4 MG Tablet PO (15:53)
[2022-03-03] MEDS: Acetaminophen 500 MG Tablet 1000 MG PO (15:54)
[2022-03-03 16:22] LABS: Mucous, Urine 0 SEEN /hpf (<or=2+)
[2022-03-03 16:32] LABS: Color, Urine Yellow (Yellow); Glucose, Dipstick Normal (Normal); Leukocyte Esterase-Dipstick 500 /ul (Negative); Nitrite-Dipstick Positive (Negative); Occult Blood-Urine 150 /ul (Negative); Protein-Dipstick 100 mg/dl (Negative); Urine Clarity Cloudy (Clear); Urine Urobilinogen 4 mg/dl (Normal)
[2022-03-03 16:33] LABS: Urine Bilirubin Dipstick 3 mg/dL (Negative)
[2022-03-03 16:35] LABS: Ketone-Dipstick 150 mg/dl (Negative)
[2022-03-03 16:39] LABS: Red Blood Cells-Urine 25-50 SEEN /hpf (0-5); White Blood Cells >100 SEEN /hpf (0-5)
[2022-03-03 16:40] LABS: Bacteria 4+ /hpf (None Seen); Squamous Epithelial Cells - UA 10-25 SEEN /hpf (5-10)
[2022-03-03] MEDS: Cephalexin 250 MG Capsule 500 MG PO (16:57)
[2022-03-03 17:18] VITALS: RESP 16
== END 2022-03-03 17:21 | disposition home or self-care (01) ==
PROVIDERS: Emergency Provider Emergency Medicine; PCP Family Medicine; Visit Provider Emergency Medicine
DX: N39.0 Urinary tract infection, site not specified (principal); F31.9 Bipolar disorder, unspecified; F41.9 Anxiety disorder, unspecified; Z79.899 Other long term (current) drug therapy; F17.290 Nicotine dependence, other tobacco product, uncomplicated
CPT/HCPCS: 81001; 87077; 87086; 87088; 87186; 99283

== ENCOUNTER 2022-06-24 22:51 | Observation (INO) | payer MEDICAID, SELFPAY ==
[2022-06-24 22:52] VITALS: BP 103/80; PULSE 81; RESP 15; TEMP 37.3; O2SAT 99; BMI 25.7
--- NOTE | 2022-06-24 23:09 | EDS_ITS ---
HPI History of Present Illness Chief Complaint: Substance Abuse Informant: patient Narrative Narrative: Presents requesting detox from opiates. She relapsed 2 months ago. Uses up to 5 pills per 30s laced with fentanyl a day. States when drugs start wearing off she starts not feeling well. Denies alcohol use. She states she snorts these. Last time was 6 hours ago. Occasional marijuana use. Last treatment August at this facility of last year. She is in for 3 days she follow-up with [facility] outpatient. She was seen him after when she relapsed 2 months ago. Denies suicidal homicidal ideations. Does not have menstrual periods due to having the Mirena. Denies any current abdominal pain any nausea or vomiting. Denies urinary symptoms. Prior similar symptoms: Yes PFSH PFS Medical History Anxiety Bipolar disorder Migraines Opioid dependence Substance abuse Home Medications brexpiprazole 2 mg tablet (Rexulti) 2 mg PO DAILY mood 08/16/21 [History Last Taken 08/16/21] lamotrigine 200 mg tablet 200 mg PO DAILY bipolar 08/16/21 [History Last Taken 08/16/21] bupropion HCl 150 mg 24 hr tablet, extended release 150 mg PO DAILY 06/24/22 [History Last Taken Unknown] Allergy/AdvReac Type Severity Reaction Status Date / Time amoxicillin [Amoxicillin] Allergy Unknown Verified 06/24/22 22:52 Social History Smoking Status: Current every day smoker tobacco type: e-cigarettes how long ago did patient quit smoking: Patient vapes and occasionally uses marijuana substance use type: opiates ROS ROS ED Constitutional Constitutional ED: Denies chills, fever(s) or sweats Eyes Eyes: Denies change in vision ENT ENT ED: Denies dysphagia or sore throat Cardiovascular Cardiovascular: Denies chest pain, leg edema, palpitations or racing heartbeat Respiratory/Chest Respiratory/Chest: Denies cough, dyspnea or dyspnea on exertion Gastrointestinal Gastrointestinal: Denies abdominal pain, diarrhea, nausea or vomiting Genitourinary Genitourinary ED: Denies dysuria, hematuria or urinary frequency Musculoskeletal Musculoskeletal: Denies back pain, extremity pain or neck pain Integumentary Denies rash or wounds Neurologic Neurologic: Denies headache(s), paresthesias or weakness Psychiatric Psychiatric: Denies suicidal ideation or suicidal thoughts EXAM Physical Exam Const Vital Signs: 06/24/22 22:52 Temperature 99.1 F Temperature Source Temporal Pulse Rate 81 Respiratory Rate 15 Blood Pressure 103/80 Blood Pressure Mean 87 Pulse Ox 99 Oxygen Delivery Method Room Air Positive well nourished and well developed General Appearance ED: well developed and NAD HEENT Reports moist mucous membranes normocephalic and atraumatic Eyes PERRL, EOMs intact bilaterally and conjunctivae normal General Eye ED: Yes normal appearance of both eyes Neck no lymphadenopathy and supple General: Negative for tenderness Chest Wall Chest: Negative for tenderness Resp normal respiratory effort and normal air movement Effort and Inspection: symmetric chest movement; Negative for respiratory distress Cardio regular rate, regular rhythm and no murmurs Peripheral Pulses: pulses 2+ throughout GI normal to inspection, nondistended, normoactive bowel sounds and non-tender Palpation: Negative for guarding or rebound tenderness present Back/Spine no CVA tenderness and no thoracic nor lumbar tenderness Extremity normal to inspection General Extremety ED: Negative for edema or tenderness General Extremity: Negative for edema Neuro oriented x3 and no sensory deficits noted Sensorium / Orientation: awake and alert Psych Psych Narrative: Cooperative denies suicidal homicidal ideations. Skin no rashes or lesions noted and no wounds MDM MDM MDM Narrative Medical decision making narrative: Patient vital signs stable here for detox from opiates. Last use 6 hours ago. We will check labs for medical clearance alcohol and toxicology screen. We will plan on discussing with hospitalist for admission. Laboratory studies reviewed by myself White count 5.9 hemoglobin 13.6 platelets 222. Alcohol negative. negative. Tox screen positive for noted ecstasy and cannabis. Creatinine 0.92. I spoke with hospitalist Dr. Pritchard for admission to the medical floor. Lab Data Attestation: I reviewed the patient's lab results. Labs: Laboratory Results - last 24 hr 06/24/22 06/24/22 06/24/22 23:11 23:11 23:23 WBC 5.9 RBC 4.43 Hgb 13.6 Hct 39.9 MCV 90.1 MCH 30.7 MCHC 34.1 RDW Std Deviation 38.7 RDW Coeff of Leann 11.8 Plt Count 220 MPV 9.1 Immature Gran % (Auto) 1.000 H Neut % (Auto) 49.0 Lymph % (Auto) 41.5 H [place] % (Auto) 6.0 Eos % (Auto) 2.0 Baso % (Auto) 0.5 Absolute Neuts (auto) 2.9 Absolute Lymphs (auto) 2.44 Nucleated RBC % 0 Sodium Potassium Chloride Carbon Dioxide Anion Gap BUN Creatinine Estim Creat Clear Calc Est GFR (MDRD) Af Amer Est GFR (MDRD) Non-Af BUN/Creatinine Ratio Glucose Calcium Urine Test Negative Urine Opiates Screen NEGATIVE Urine Methadone Screen NEGATIVE Ur Barbiturates Screen NEGATIVE Ur Phencyclidine Scrn NEGATIVE Ur Amphetamines Screen NEGATIVE MDMA (Ecstasy) Screen POSITIVE H U Benzodiazepines Scrn NEGATIVE Urine Cocaine Screen NEGATIVE U Cannabinoids Screen POSITIVE H Ur Drug Screen Comment Ethyl Alcohol 06/24/22 06/24/22 23:23 23:23 WBC RBC Hgb Hct MCV MCH MCHC RDW Std Deviation RDW Coeff of Leann Plt Count MPV Immature Gran % (Auto) Neut % (Auto) Lymph % (Auto) [place] % (Auto) Eos % (Auto) Baso % (Auto) Absolute Neuts (auto) Absolute Lymphs (auto) Nucleated RBC % Sodium 141 Potassium 3.4 L Chloride 105 Carbon Dioxide 30.0 Anion Gap 6 BUN 13 Creatinine 0.92 Estim Creat Clear Calc 79.14 Est GFR (MDRD) Af Amer 88 Est GFR (MDRD) Non-Af 73 BUN/Creatinine Ratio 14.1 Glucose 105 Calcium 9.2 Urine Test Urine Opiates Screen Urine Methadone Screen Ur Barbiturates Screen Ur Phencyclidine Scrn Ur Amphetamines Screen MDMA (Ecstasy) Screen U Benzodiazepines Scrn Urine Cocaine Screen U Cannabinoids Screen Ur Drug Screen Comment Ethyl Alcohol < 3.0 Discharge Plan Dx/Rx/DC Orders Clinical Impression: Opioid dependence, History of migraine, History of anxiety Disposition Disposition: Acute Care Hospital [facility]
--- NOTE | 2022-06-24 23:28 | PCM.HP.STD ---
HPI - General General Date of Admission: 06/24/22 Date of Service: 06/24/22 Chief Complaint: Desire for detoxification HPI Narrative TISH NORIEGA, is a 37 F with a significant history of tobacco abuse; opioid abuse who presents emergency department for help with detoxification. Patient reports using fake Percocets pills laced with fentanyl. Reportedly she has been about 4 to 5 pills/day. Last time she used was 6 hours ago. She snorts. Reportedly she was off drugs for about a while but relapsed 2 months ago. All in all she has been using drugs for about a year and a half. She reports withdrawal symptoms of abdominal pain, anxiety and pain in her knees. [facility] Medical History Anxiety Bipolar disorder Migraines Opioid dependence Substance abuse Home Medications brexpiprazole 2 mg tablet (Rexulti) 2 mg PO DAILY mood 08/16/21 [History Last Taken 08/16/21] lamotrigine 200 mg tablet 200 mg PO DAILY bipolar 08/16/21 [History Last Taken 08/16/21] bupropion HCl 150 mg 24 hr tablet, extended release 150 mg PO DAILY 06/24/22 [History Last Taken Unknown] Allergy/AdvReac Type Severity Reaction Status Date / Time amoxicillin [Amoxicillin] Allergy Unknown Verified 06/24/22 22:52 Family History Other Diabetes Surgical History no surgical history no surgical history Social History Smoking Status: Current every day smoker tobacco type: e-cigarettes how long ago did patient quit smoking: Patient vapes and occasionally uses marijuana substance use type: opiates ROS ROS Narrative Pertinent positives and pertinent negatives as noted in HPI. All other systems were reviewed and are negative Vital Signs Vital Signs Vital Signs: 06/24/22 22:52 Temperature 99.1 F Temperature Source Temporal Pulse Rate 81 Respiratory Rate 15 Blood Pressure 103/80 Blood Pressure Mean 87 Pulse Ox 99 Oxygen Delivery Method Room Air Weight Weight: 72.121 kg Body Mass Index (BMI) 25.7 Physical Exam Narrative Physical exam: General: Well-nourished, well-developed. Head: Normocephalic, atraumatic, no tenderness Eyes: Vision is grossly intact. EOMI ENT, no trauma, moist mucous membranes, no rhinorrhea Neck: Nontender, No thyromegaly. CVS: Regular rate and rhythm. S1-S2 present. No murmur, gallop or rub. Respiratory : clear to auscultation bilaterally, chest wall nontender, no wheezing Abdomen: Soft, nontender, nondistended, normal bowel sounds, no masses : Deferred Back: Nontender, no CVA tenderness, no midline spinal tenderness, deformities, step-offs Extremities: Nontender full range of motion, no trauma Skin: Normal color, no trauma, abrasions Neuro: Alert, oriented, cranial nerves II through XII grossly intact. Psychiatry: Normal mood. Normal affect. Not depressed. Not anxious. Results Lab / Micro Data Result Diagrams: 06/24/22 23:23 06/24/22 23:23 Labs: Laboratory Results - last 24 hr 06/24/22 23:11: Ur Drug Screen Comment Assessment & Plan Assessment/Plan (1) Desire for detoxification: PLAN: Plan Opioid dependence and withdrawal Patient be started on Subutex and other adjunctive medications: Gabapentin as needed; dicyclomine as needed; Vistaril as needed; methocarbamol as needed; clonidine as needed; Imodium as needed; trazodone as needed and Zofran as needed. Monitor COWS and CINA score Tobacco abuse Counseled Declined nicotine patch since in the past it has given her headaches. DVT prophylaxis Low risk Encourage to ambulate Charges/Coding Visit Charges Inpatient E&M: 91378 Init Hosp L2
[2022-06-24 23:39] LABS: Internal QC Validated? YES +Cl - CLEAR BKGD; Pregnancy, Urine Negative Negative
[2022-06-24 23:48] LABS: Absolute Lymphocyte Count 2.44 X10^3/uL (0.83-4.51); Absolute Neutrophil Count 2.9 X10^3/uL (2.0-7.7); Alcohol, Blood (Medical)-Serum < 3.0 mg/dL; Basophil# 0.03 X10^3/uL; Basophil% 0.5 % (0-1); Eosinophil# 0.12 X10^3/uL; Hematocrit 39.9 % (37-47); Hemoglobin 13.6 g/dL (12.0-15.0); Lymphocyte # 2.44 X10^3/ul (0.83-4.51); Lymphocyte % 41.5 % (19-41); Mean Corp Hgb Conc 34.1 g/dL (32-36); Mean Corpuscular Hgb 30.7 pg (27.0-32.0); Mean Corpuscular Volume 90.1 fL (81-99); Mean Platelet Vol. 9.1 fl (6.2-12.0); Monocyte# 0.35 X10^3/uL; NRBC Flagged by Analyzer 0 % (0-5); Neutrophil # 2.88 X10^3/uL (2.7-7.7); Platelet Count 220 K/mm3 (150-450); RBC Distribution Width CV 11.8 % (11.6-14.6); RBC Distribution Width SD 38.7 fl (35.1-43.9); Red Blood Count 4.43 M/mm3 (4.2-5.4); White Blood Count 5.9 K/mm3 (4.4-11.0)
[2022-06-24 23:49] LABS: Anion Gap 6 (5-15); BUN 13 mg/dL (7-18); BUN/Creat Ratio 14.1 RATIO (10-20); Calcium,Total 9.2 mg/dL (8.5-10.1); Chloride 105 mmol/L (98-107); Creatinine, Serum 0.92 mg/dL (0.55-1.02); EST Glomerular Filtration Rate 73 mL/min (>60); Est Glom Filt Rate - Afr Amer 88 mL/min (>60); Estimated Creatinine Clearance 79.14 ml/min; Glucose 105 mg/dL (74-106); Potassium 3.4 mmol/L (3.5-5.1); Sodium Level 141 mmol/L (136-145)
[2022-06-24 23:50] LABS: Amphetamine Urine VISTA NEGATIVE (<1000 ng/mL); Barbiturate Urine VISTA NEGATIVE (< 200 ng/mL); Benzodiazepine Urine VISTA NEGATIVE (< 200 ng/mL); Cocaine Urine VISTA NEGATIVE (< 300 ng/mL); Ecstacy Urine VISTA POSITIVE (< 500 ng/mL); Methadone Urine VISTA NEGATIVE (< 300 ng/mL); PCP Urine VISTA NEGATIVE (< 25 ng/mL); THC Urine VISTA POSITIVE (< 50 ng/mL); Vista UDS pH Range 5
[2022-06-24 23:57] VITALS: BP 103/80; PULSE 81; RESP 15; TEMP 37.3; O2SAT 99
[2022-06-25] VITALS (9 sets, daily range): BP systolic 82–107; BP diastolic 56–71; PULSE 55–95; RESP 16–18; TEMP 36.6–36.8; O2SAT 92–100; BMI 24.5
[2022-06-25] MEDS: Dicyclomine 10 MG Capsule 20 MG PO ×2 (01:26→09:39)
[2022-06-25] MEDS: cloNIDine HCl 0.1 MG Tablet PO ×2 (01:26→21:57)
[2022-06-25] MEDS: Methocarbamol 750 MG Tablet 1500 MG PO ×3 (01:27→21:57)
[2022-06-25] MEDS: CLARIFY ORDER 1 EACH NOTE (04:25)
[2022-06-25] MEDS: Gabapentin 300 MG Capsule PO ×2 (04:28→19:14)
--- NOTE | 2022-06-25 07:34 | PCM.PN.HOSP ---
Subjective Subjective Feels unwell today. Complaining abdominal cramps and diffuse myalgias. Objective Data Objective Data Vital Signs: Vital Signs Temp Pulse Resp BP Pulse Ox O2 Del Method 36.6 C 55 L 16 105/59 L 100 Room Air 06/25/22 06:25 06/25/22 06:25 06/25/22 06:25 06/25/22 06:25 06/25/22 06:25 06/25/22 06:25 Oxygen Delivery Method Room Air Weight: 69.2 kg Body Mass Index (BMI) 24.5 Intake & Output: Intake and Output for Last 24 Hours 06/23/22 06/24/22 06/25/22 23:59 23:59 23:59 Intake Total 500 / 500 Balance 500 / 500 Lab / Micro Data Result Diagrams: 06/24/22 23:23 06/24/22 23:23 Labs: Laboratory Results - last 24 hr 06/24/22 23:11: Urine Opiates Screen NEGATIVE, Urine Methadone Screen NEGATIVE, Ur Barbiturates Screen NEGATIVE, Ur Phencyclidine Scrn NEGATIVE, Ur Amphetamines Screen NEGATIVE, MDMA (Ecstasy) Screen POSITIVE H, U Benzodiazepines Scrn NEGATIVE, Urine Cocaine Screen NEGATIVE, U Cannabinoids Screen POSITIVE H, Ur Drug Screen Comment 06/24/22 23:11: Urine Test Negative 06/24/22 23:23: WBC 5.9, RBC 4.43, Hgb 13.6, Hct 39.9, MCV 90.1, MCH 30.7, MCHC 34.1, RDW Std Deviation 38.7, RDW Coeff of Leann 11.8, Plt Count 220, MPV 9.1, Immature Gran % (Auto) 1.000 H, Neut % (Auto) 49.0, Lymph % (Auto) 41.5 H, [place] % (Auto) 6.0, Eos % (Auto) 2.0, Baso % (Auto) 0.5, Absolute Neuts (auto) 2.9, Absolute Lymphs (auto) 2.44, Nucleated RBC % 0 06/24/22 23:23: Sodium 141, Potassium 3.4 L, Chloride 105, Carbon Dioxide 30.0, Anion Gap 6, BUN 13, Creatinine 0.92, Estim Creat Clear Calc 79.14, Est GFR (MDRD) Af Amer 88, Est GFR (MDRD) Non-Af 73, BUN/Creatinine Ratio 14.1, Glucose 105, Calcium 9.2 06/24/22 23:23: Ethyl Alcohol < 3.0 Physical Exam Const alert and no apparent distress Constitutional Narrative: Sleeping when I arrived but woke up shortly afterwards. Resp normal respiratory effort, no retractions, no use of accessory muscles and clear to auscultation bilaterally Cardio regular rate, regular rhythm, S1 normal heart sound and S2 normal heart sound GI normal to inspection, nondistended, normoactive bowel sounds, soft to palpation and non-tender Assessment & Plan Assessment/Plan (1) Desire for detoxification: PLAN: Opioid dependence and withdrawal Patient be started on Subutex and other adjunctive medications: Gabapentin as needed; dicyclomine as needed; Vistaril as needed; methocarbamol as needed; clonidine as needed; Imodium as needed; trazodone as needed and Zofran as needed. Monitor COWS and CINA score PLAN: Plan Tobacco abuse Counseled Declined nicotine patch since in the past it has given her headaches. DVT prophylaxis Low risk Encourage to ambulate Charges/Coding Visit Charges Inpatient E&M: 36479 Subs Hosp L2
[2022-06-25] MEDS: lamoTRIgine 100 MG Tablet 200 MG PO (09:39)
[2022-06-25] MEDS: Buprenorphine HCl 2 MG TAB.SUBL SL ×2 (09:39→18:28)
[2022-06-25] MEDS: buPROPion (XL) 150 MG TABLET.XL PO (09:39)
[2022-06-25] MEDS: hydrOXYzine PAM 25 MG Capsule 50 MG PO ×2 (09:39→21:57)
[2022-06-25] MEDS: BREXPIPRAZOLE 2 MG TABLET PO (09:40)
[2022-06-25] MEDS: Acetaminophen 325 MG Tablet 650 MG PO (19:14)
[2022-06-25] MEDS: traZODone 100 MG Tablet PO (21:57)
[2022-06-26] MEDS: Buprenorphine HCl 2 MG TAB.SUBL SL ×3 (00:29→17:07)
[2022-06-26 05:22] VITALS: BP 93/58; PULSE 66; RESP 18; TEMP 36.6; O2SAT 98
[2022-06-26] MEDS: Gabapentin 300 MG Capsule PO (05:30)
[2022-06-26] MEDS: Acetaminophen 325 MG Tablet 650 MG PO (05:30)
[2022-06-26] MEDS: Methocarbamol 750 MG Tablet 1500 MG PO ×3 (05:30→19:51)
--- NOTE | 2022-06-26 07:39 | PCM.PN.HOSP ---
Subjective Subjective Still feels sick but feeling better today. Objective Data Objective Data Vital Signs: Vital Signs Temp Pulse Resp BP Pulse Ox O2 Del Method 36.6 C 66 18 93/58 L 98 Room Air 06/26/22 05:22 06/26/22 05:22 06/26/22 05:22 06/26/22 05:22 06/26/22 05:22 06/26/22 05:22 Oxygen Delivery Method Room Air Weight: 69.2 kg Body Mass Index (BMI) 24.5 Intake & Output: Intake and Output for Last 24 Hours 06/24/22 06/25/22 06/26/22 23:59 23:59 23:59 Intake Total 500 / 500 1200 / 1200 Balance 500 / 500 1200 / 1200 Medical Nutrition Assessment Dietitian: Malnutrition Criteria Met Start: 06/25/22 09:52 Freq: Status: Active Protocol: Document 06/25/22 13:23 RMA (Rec: 06/25/22 13:23 RMA [id number]) Nutrition Malnutrition Evidence of Malnutrition Exists Yes Malnutrition (severe): Social/Behavioral/ Environmental Evidenced By Suboptimal Energy Intake ( Severe),Weight Loss (Severe) Clinical Problem Chronic Disease or Condition Related Malnutrition Etiology Severe protein-calorie malnutrition in the context of social circumstance related to substance abuse and inadequate oral intake Signs/Symptoms as evidenced by PO meeting less than 50% estimated nutrition needs and weight loss~13% x 6 months Status Active Problem Recommendation Dietitian Recommendations/Changes Continue regular diet as ordered. Will add 240ml ensure plus high protein BID w/ breakfast and dinner. Adjust ONS as needed to prevent further weight loss and optimize oral intake. Lab / Micro Data Result Diagrams: 06/24/22 23:23 06/24/22 23:23 Physical Exam Const alert and no apparent distress HEENT head/scalp atraumatic Psych affect normal Assessment & Plan Assessment/Plan (1) Desire for detoxification: PLAN: Opioid dependence and withdrawal Patient be started on Subutex and other adjunctive medications: Gabapentin as needed; dicyclomine as needed; Vistaril as needed; methocarbamol as needed; clonidine as needed; Imodium as needed; trazodone as needed and Zofran as needed. Monitor COWS and CINA score Patient to follow-up with [facility] upon discharge. PLAN: Plan Tobacco abuse Counseled Declined nicotine patch since in the past it has given her headaches. DVT prophylaxis Low risk Encourage to ambulate Charges/Coding Visit Charges Inpatient E&M: 70386 Subs Hosp L1
[2022-06-26 08:07] VITALS: BP 88/49; PULSE 68; RESP 18; TEMP 37.2; O2SAT 93
--- NOTE | 2022-06-26 09:13 | ADDICTION ---
TW met with pt to complete ASAM, AUDIT, DUDIT, MSE, and begin D/C planning. Pt was cooperative at first and shared history with TW. TW began the discussion of d/c planning and pt stated she wanted to f/u with [facility]. TW offered to bring in phone and call [facility] to make an appt and pt was agreeable. TW began to fill out NICK for phone call and pt stated I want to do this myself, I can do it, I know I can do it. Pt explained she can walk in same day and be seen and does not need an appt. TW f/u multiple times offering to call together and pt refused and stated she would do it once released. No transportation needs noted.
[2022-06-26] MEDS: buPROPion (XL) 150 MG TABLET.XL PO (09:19)
[2022-06-26] MEDS: lamoTRIgine 100 MG Tablet 200 MG PO (09:19)
[2022-06-26] MEDS: BREXPIPRAZOLE 2 MG TABLET PO (09:20)
[2022-06-26] MEDS: hydrOXYzine PAM 25 MG Capsule 50 MG PO (12:57)
[2022-06-26] MEDS: cloNIDine HCl 0.1 MG Tablet PO (12:57)
[2022-06-26 14:08] VITALS: BP 91/59; PULSE 74; RESP 18; TEMP 36.8; O2SAT 97
[2022-06-26 19:35] VITALS: BP 90/53; PULSE 60; RESP 16; TEMP 36.7; O2SAT 99
[2022-06-26 19:39] VITALS: PULSE 60
[2022-06-27 02:24] VITALS: BP 82/53; PULSE 74; RESP 16; TEMP 36.8; O2SAT 99
[2022-06-27] MEDS: Buprenorphine HCl 2 MG TAB.SUBL SL ×2 (02:30→09:40)
[2022-06-27] MEDS: Methocarbamol 750 MG Tablet 1500 MG PO (02:30)
[2022-06-27 07:23] VITALS: O2SAT 97
--- NOTE | 2022-06-27 07:55 | PCM.PN.HOSP ---
Subjective Subjective Feels better. Objective Data Objective Data Vital Signs: Vital Signs Temp Pulse Resp BP Pulse Ox O2 Del Method 36.8 C 74 16 82/53 L 97 Room Air 06/27/22 02:24 06/27/22 02:24 06/27/22 02:24 06/27/22 02:24 06/27/22 07:23 06/27/22 07:23 Oxygen Delivery Method Room Air Weight: 69.2 kg Body Mass Index (BMI) 24.5 Intake & Output: Intake and Output for Last 24 Hours 06/25/22 06/26/22 06/27/22 23:59 23:59 23:59 Intake Total 500 / 500 1200 / 1200 Balance 500 / 500 1200 / 1200 Medical Nutrition Assessment Dietitian: Malnutrition Criteria Met Start: 06/25/22 09:52 Freq: Status: Active Protocol: Document 06/25/22 13:23 RMA (Rec: 06/25/22 13:23 RMA [id number]) Nutrition Malnutrition Evidence of Malnutrition Exists Yes Malnutrition (severe): Social/Behavioral/ Environmental Evidenced By Suboptimal Energy Intake ( Severe),Weight Loss (Severe) Clinical Problem Chronic Disease or Condition Related Malnutrition Etiology Severe protein-calorie malnutrition in the context of social circumstance related to substance abuse and inadequate oral intake Signs/Symptoms as evidenced by PO meeting less than 50% estimated nutrition needs and weight loss~13% x 6 months Status Active Problem Recommendation Dietitian Recommendations/Changes Continue regular diet as ordered. Will add 240ml ensure plus high protein BID w/ breakfast and dinner. Adjust ONS as needed to prevent further weight loss and optimize oral intake. Lab / Micro Data Result Diagrams: 06/24/22 23:23 06/24/22 23:23 Physical Exam Const alert and no apparent distress Constitutional Narrative: lying in bed. HEENT head/scalp atraumatic Assessment & Plan Assessment/Plan (1) Desire for detoxification: PLAN: Opioid dependence and withdrawal Patient be started on Subutex and other adjunctive medications: Gabapentin as needed; dicyclomine as needed; Vistaril as needed; methocarbamol as needed; clonidine as needed; Imodium as needed; trazodone as needed and Zofran as needed. Monitor COWS and CINA score Patient to follow-up with [facility] upon discharge. PLAN: Plan Tobacco abuse Counseled Declined nicotine patch since in the past it has given her headaches. DVT prophylaxis Low risk Encourage to ambulate
[2022-06-27 09:29] VITALS: BP 90/50; PULSE 59; RESP 16; TEMP 36.6; O2SAT 98
[2022-06-27] MEDS: BREXPIPRAZOLE 2 MG TABLET PO (09:38)
[2022-06-27] MEDS: buPROPion (XL) 150 MG TABLET.XL PO (09:40)
[2022-06-27] MEDS: lamoTRIgine 100 MG Tablet 200 MG PO (09:40)
--- NOTE | 2022-06-27 10:19 | DCINST_ITS ---
Discharge Instructions Diet Discharge Diet: No restrictions Follow Up Care Test Results: Test results from this visit will be discussed in further detail at your follow- up appointment, if applicable. Discharge Plan Admission Admit Date/Time: 06/24/22 23:26 Primary Reason for Your Visit: Opiate withdrawal Attending Provider: Jacob Markham Primary Care Provider: Yuan Blackburn Consulting Providers: Joni Pritchard Discharge Orders/Prescriptions Prescriptions: Continued lamotrigine 200 mg tablet 200 mg PO DAILY Rexulti 2 mg tablet 2 mg PO DAILY bupropion HCl 150 mg tablet extended release 24 hr 150 mg PO DAILY rizatriptan 10 mg tablet,disintegrating 10 mg translingual Q2H PRN PRN (Reason: Migraine Headache) Referrals / Follow Up: Yuan Blackburn MD [Primary Care Provider] - Within 2 Weeks Disposition Disposition (needs filled in before D/C Order can be placed): Home, Self Care
--- NOTE | 2022-06-27 10:20 | PCM.DC.SUM ---
Providers Date of Admission: 06/24/22 Primary Care Physician: Dr. Yuan Blackburn MD Reason For Visit: DESIRE FOR DETOXIFICATION Diagnosis Discharge Diagnosis (1) Desire for detoxification: Status: Acute Plan: Opioid dependence and withdrawal Patient be started on Subutex and other adjunctive medications: Gabapentin as needed; dicyclomine as needed; Vistaril as needed; methocarbamol as needed; clonidine as needed; Imodium as needed; trazodone as needed and Zofran as needed. Monitor COWS and CINA score Patient to follow-up with [facility] upon discharge. Plan Tobacco abuse Counseled Declined nicotine patch since in the past it has given her headaches. DVT prophylaxis Low risk Encourage to ambulate Medications at Discharge Home Medications brexpiprazole 2 mg tablet (Rexulti) 2 mg PO DAILY mood 08/16/21 lamotrigine 200 mg tablet 200 mg PO DAILY bipolar 08/16/21 bupropion HCl 150 mg 24 hr tablet, extended release 150 mg PO DAILY 06/24/22 rizatriptan 10 mg disintegrating tablet 10 mg translingual Q2H PRN PRN Migraine Headache 06/25/22 Hospital Course Operations None Procedures None Medical Records Data Medical Nutrition Assessment Dietitian: Malnutrition Criteria Met Start: 06/25/22 09:52 Freq: Status: Active Protocol: Document 06/25/22 13:23 RMA (Rec: 06/25/22 13:23 RMA [id number]) Nutrition Malnutrition Evidence of Malnutrition Exists Yes Malnutrition (severe): Social/Behavioral/ Environmental Evidenced By Suboptimal Energy Intake ( Severe),Weight Loss (Severe) Clinical Problem Chronic Disease or Condition Related Malnutrition Etiology Severe protein-calorie malnutrition in the context of social circumstance related to substance abuse and inadequate oral intake Signs/Symptoms as evidenced by PO meeting less than 50% estimated nutrition needs and weight loss~13% x 6 months Status Active Problem Recommendation Dietitian Recommendations/Changes Continue regular diet as ordered. Will add 240ml ensure plus high protein BID w/ breakfast and dinner. Adjust ONS as needed to prevent further weight loss and optimize oral intake. Weight / BMI Weight Weight: 69.2 kg Body Mass Index (BMI) 24.5 ABG / Lab / Microbiology Data Result Diagrams: 06/24/22 23:23 06/24/22 23:23 D/C Instructions Discharge Diet: No restrictions Meaningful Use Info Meaningful Use Diagnoses (Choose all that apply): None applicable Discharge Plan Admission Admit Date/Time: 06/24/22 23:26 Primary Reason for Your Visit: Opiate withdrawal Attending Provider: Jacob Markham Primary Care Provider: Yuan Blackburn Consulting Providers: Joni Pritchard Discharge Orders/Prescriptions Prescriptions: Continued lamotrigine 200 mg tablet 200 mg PO DAILY Rexulti 2 mg tablet 2 mg PO DAILY bupropion HCl 150 mg tablet extended release 24 hr 150 mg PO DAILY rizatriptan 10 mg tablet,disintegrating 10 mg translingual Q2H PRN PRN (Reason: Migraine Headache) Referrals / Follow Up: Yuan Blackburn MD [Primary Care Provider] - Within 2 Weeks Disposition Disposition (needs filled in before D/C Order can be placed): Home, Self Care Charges/Coding Visit Charges Inpatient E&M: 16350 Disch Hosp
--- NOTE | 2022-06-27 10:33 | PHA.DC.MR ---
Pharmacy Service has performed discharge medication reconciliation for this patient. No new medications at time of discharge medication review. Medications reviewed are from previously reported home medications. Home Medications brexpiprazole 2 mg tablet (Rexulti) 2 mg PO DAILY mood 08/16/21 lamotrigine 200 mg tablet 200 mg PO DAILY bipolar 08/16/21 bupropion HCl 150 mg 24 hr tablet, extended release 150 mg PO DAILY 06/24/22 rizatriptan 10 mg disintegrating tablet 10 mg translingual Q2H PRN PRN Migraine Headache 06/25/22 The patient's discharge medication list was reviewed for discrepancies and discrepancies were resolved.
== END 2022-06-27 12:25 | disposition home or self-care (01) ==
LOC: ED 23:49 → MS3 06-25 07:21
PROVIDERS: Admitting Provider Hospitalist; Emergency Provider Emergency Medicine; PCP Family Medicine
DX: F11.23 Opioid dependence with withdrawal (principal); E43 Unspecified severe protein-calorie malnutrition; F31.9 Bipolar disorder, unspecified; F12.90 Cannabis use, unspecified, uncomplicated; F41.9 Anxiety disorder, unspecified; F17.290 Nicotine dependence, other tobacco product, uncomplicated; Z79.899 Other long term (current) drug therapy; Z68.25 Body mass index [BMI] 25.0-25.9, adult
CPT/HCPCS: 36415; 80048; 80307; 81025; 82077; 85025; 97802; 99283; H0012

== ENCOUNTER 2024-01-02 21:20 | Emergency (ER) | payer MEDICAID, SELFPAY ==
[2024-01-02 21:20] VITALS: BP 116/80; PULSE 71; RESP 14; TEMP 36.8; O2SAT 98; BMI 29.8
[2024-01-02 22:07] VITALS: BP 119/54; PULSE 73; RESP 18; O2SAT 100
[2024-01-02] MEDS: DiphenhydrAMINE 50 MG/ML Syringe IV (22:19)
[2024-01-02] MEDS: Ketorolac 30 MG/ML Syringe IV (22:19)
[2024-01-02] MEDS: Metoclopramide 10 MG/2 ML Vial IV (22:19)
[2024-01-02] MEDS: 0.9% Normal Saline (1000mL) 1,000 ML 999 ML IV (22:24)
--- NOTE | 2024-01-02 22:26 | EDS_ITS ---
HPI History of Present Illness Chief Complaint: Headache Informant: patient Narrative Narrative: Patient is a 38-year-old female with past medical history of bipolar disorder anxiety and migraine headaches. She states that roughly 3 hours ago she developed a headache that came on gradually and increased over the last few hours. She states the headache is sensitive to light and sound and makes her have bouts of nausea and vomiting and feels similar nature to her previous migraines. She states she took her medication for migraine but did not have any improvement. She does report that this happens occasionally. She denies any recent trauma prior to the headache beginning and she denies any recent sick symptoms such as fevers chills abdominal pain dysuria or concern for . However as she cannot get her headache under control at home she presents for evaluation [facility] Medical History History of anxiety History of migraine Opioid dependence Substance abuse Opioid dependence Anxiety Bipolar disorder Migraines Home Medications ?Medication ?Instructions ?Recorded ?Last Taken ?Type rizatriptan 10 mg disintegrating 10 mg translingual Q2H PRN PRN 06/25/22 04/23/22 20:00 History tablet Migraine Headache methocarbamol 500 mg tablet 1,000 mg (2 x 500 mg) PO 4X/DAY 01/02/24 Unknown Rx PRN Muscle pain/spasm #56 tabs Allergy/AdvReac Type Severity Reaction Status Date / Time amoxicillin (Amoxicillin) Allergy Unknown Verified 01/02/24 21:21 Family History Other Diabetes Surgical History no surgical history Social History Smoking Status: Current every day smoker tobacco type: e-cigarettes how long ago did patient quit smoking: Patient vapes and occasionally uses marijuana substance use type: opiates ROS ROS ED Constitutional Constitutional ED: Denies chills or fever(s) Eyes Eyes: Reports other Details: Positive photophobia ENT ENT ED: Denies sore throat Cardiovascular Cardiovascular: Denies chest pain Respiratory/Chest Respiratory/Chest: Denies cough or dyspnea Gastrointestinal Gastrointestinal: Reports nausea and vomiting; Denies abdominal pain or diarrhea Genitourinary Genitourinary ED: Denies dysuria Musculoskeletal Musculoskeletal: Reports back pain; Denies neck pain Integumentary Denies rash Neurologic Neurologic: Reports headache(s); Denies paresthesias or weakness Hematologic/Lymphatic Hematologic/Lymphatic: Denies easy bleeding or easy bruising EXAM Physical Exam Const Vital Signs: 01/02/24 21:20 01/02/24 22:07 Temperature 98.3 F Temperature Source Temporal Pulse Rate 71 73 Respiratory Rate 14 18 Blood Pressure 116/80 119/54 L Blood Pressure Mean 92 75 Pulse Ox 98 100 Oxygen Delivery Method Room Air Room Air Positive well nourished and well developed General Appearance ED: well developed; Negative for pallor HEENT HEENT Narrative: Normocephalic atraumatic Eyes PERRL and EOMs intact bilaterally General Eye ED: Negative for pale conjunctiva or scleral icterus Neck supple Neck Narrative: No nuchal rigidity or meningeal signs noted Resp normal respiratory effort and clear to auscultation bilaterally Cardio regular rate and regular rhythm Rate: other Other Details: Heart is regular rate and rhythm without murmurs rubs or gallops Radial and carotid pulses are equal and symmetric GI normal to inspection, nondistended, normoactive bowel sounds, non-tender, non-distended and no masses Auscultation: normoactive bowel sounds Palpation: soft Back/Spine Back/Spine Narrative: No bony deformity or step-off of the thoracic or lumbar spine no midline tenderness to palpation Patient does have bilateral paralumbar muscular tension and spasm that worsens with extension and rotation Negative straight leg raise. No clonus or Babinski. No saddle anesthesia. Patellar reflexes are plus 2 out of 4 bilaterally Extremity normal to inspection Neuro oriented x3, CN's II-XII intact bilaterally and no sensory deficits noted Neuro Narrative: Cranial nerves II through XII are grossly intact without focal neurologic deficit No pronator drift no dysmetria no truncal ataxia NIH stroke scale score of 0 GCS of 15 Sensorium / Orientation: alert Motor Exam: strength 5/5 throughout Psych mental status grossly normal Skin no rashes or lesions noted and no wounds Skin Narrative: No overlying soft tissue changes to suggest trauma or infection General Skin Exam: Negative for jaundice or pallor MDM MDM MDM Narrative Medical decision making narrative: Patient arrived to the ER with stable vitals and reported headache that came on over the last few hours that is similar nature to her previous migraines. Differential diagnosis is for breakthrough migraine headache versus tension headache versus sinusitis. As she denies any trauma and there is no signs of injury concern for traumatic subarachnoid or subdural hemorrhage is low. She also does not have a fever or any nuchal rigidity going against meningitis as a cause of her headache. Therefore this time I do not feel there is need for imaging or laboratory studies. Patient also reports bilateral low back pain but she denies any loss of bowel or bladder or IV drug use and therefore I low concern for cauda equina or epidural abscess. She also denies any urinary symptoms or concern for going against UTI/pyelonephritis or complication as a cause of her low back pain. 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 The patient was given IV fluids Toradol Benadryl and Reglan and on repeat evaluation reported near resolution of her headache and her neurologic exam and vitals remain normal. Therefore do not feel there is need for further evaluation and patient is safe for discharge and will be treated symptomatically History & Record Review Discussion w/independent historian: Patient and Family Discharge Plan Triage Chief Complaint: Headache ED Provider: Vel Michaels Dx/Rx/DC Orders Clinical Impression: Cephalgia, Acute myofascial strain of lumbosacral region, Bipolar disorder Instructions: ED Back Sprain/Strain, ED, Migraine (Classical) Prescriptions: New methocarbamol 500 mg tablet 1,000 mg PO 4X/DAY PRN (Reason: Muscle pain/spasm) Qty: 56 0RF No Action rizatriptan 10 mg tablet,disintegrating 10 mg translingual Q2H PRN PRN (Reason: Migraine Headache) Primary Care Provider: Yuan Blackburn Referrals: Yuan Blackburn MD [Primary Care Provider] - Activity Restrictions/Additional Instructions: Please continue all of your home medication as directed but add the prescribed Robaxin for improved relief of your low back pain. Continue to stretch and heat your low back to help reduce pain and speed healing and return to the ER should you have any further concerns Print Language: Macedonian Disposition Disposition: Home, Self Care
[2024-01-02 23:29] VITALS: BP 99/38; PULSE 70; RESP 18; TEMP 36.9; O2SAT 100
== END 2024-01-02 23:30 | disposition home or self-care (01) ==
PROVIDERS: Emergency Provider Emergency Medicine; PCP Family Medicine; Visit Provider Emergency Medicine
DX: R51.9 Headache, unspecified (principal); F31.9 Bipolar disorder, unspecified; S39.012A Strain of muscle, fascia and tendon of lower back, initial encounter; Z79.899 Other long term (current) drug therapy; F17.290 Nicotine dependence, other tobacco product, uncomplicated
CPT/HCPCS: 96361; 96374; 96375; 99283; J7030; A4216